=== PATIENT | female | born 1990 | race Hispanic/Latino ===

== ENCOUNTER 2023-11-01 15:30 | Emergency (ER) | payer OTHER | END 2023-11-01 18:21 | disposition left against medical advice (07) | LOC: EDH 15:30 | DX: H53.2 Diplopia (principal); Z53.21 Procedure and treatment not carried out due to patient leaving prior to being seen by health care provider ==

== ENCOUNTER 2023-11-10 16:21 | Emergency (ER) | payer OTHER ==
[~2023-11-10] VITALS: Ht 160 cm; Wt 80.7 kg
[2023-11-10] MEDS ORDERED: CYCL-309 PO (16:33)
[2023-11-10] MEDS ORDERED: BUTA-271 PO (16:33)
[2023-11-10] MEDS: ACETAMINOPHEN 500 MG TABLET PO ONE (17:06)
[2023-11-10] MEDS: CYCLOBENZAPRINE HCL 10 MG TABLET PO ONE (17:06)
[2023-11-10 17:08] VITALS: BP 105/57; PULSE 80; RESP 48; O2SAT 96
== END 2023-11-10 17:40 | disposition home or self-care (01) ==
LOC: EDH 16:21
DX: G44.209 Tension-type headache, unspecified, not intractable (principal); R20.2 Paresthesia of skin; Z98.890 Other specified postprocedural states

== ENCOUNTER 2024-01-09 17:36 | Emergency (ER) | payer OTHER ==
[~2024-01-09] VITALS: Ht 160 cm; Wt 81.2 kg
[~2024-01-09 17:36] MED LIST: BUTA-271 PO; CYCL-309 PO
[2024-01-09 19:36] VITALS: BP 123/74; PULSE 72; RESP 18
[2024-01-09 20:20] LABS: ADD UA MICROSCOPIC YES; APPEARANCE,URINE CLOUDY (CLEAR); BILIRUBIN,URINE NEGATIVE (NEGATIVE); COLOR,URINE LIGHT-YELLOW (YELLOW); GLUCOSE, URINE (UA) NEGATIVE (NEGATIVE); KETONES,URINE NEGATIVE (NEGATIVE); LEUKOCYTE ESTERASE ,URINE NEGATIVE Leu/uL (NEGATIVE); NITRATE,URINE NEGATIVE (NEGATIVE); OCCULT BLOOD,URINE NEGATIVE (NEGATIVE); PROTEIN,URINE NEGATIVE (NEGATIVE); UROBILINOGEN,URINE 0.2 mg/dL (0.2-1.0)
[2024-01-09 20:26] LABS: BACTERIA,URINE RARE /HPF (None Seen); MUCUS,URINE RARE LPF (None Seen); SQUAMOUS EPITHELIAL CELL,UR MOD /HPF (0-2); UNCLASSIFIED CRYSTAL 2 /HPF (None Seen)
[2024-01-09] MEDS ORDERED: CEFTRIAXONE 1G VIAL IM ONE (21:30)
== END 2024-01-09 22:18 | disposition left against medical advice (07) ==
LOC: EDH 17:36
DX: R10.9 Unspecified abdominal pain (principal); Z53.21 Procedure and treatment not carried out due to patient leaving prior to being seen by health care provider
CPT/HCPCS: 81001; 81025; 87088; 99281

== ENCOUNTER 2024-01-23 18:23 | Emergency (ER) | payer OTHER ==
[~2024-01-23] VITALS: Ht 160 cm; Wt 81.6 kg
[2024-01-23 18:42] LABS: BASOPHILS # (AUTO) 0.04 K/uL (0.00-0.20); BASOPHILS % (AUTO) 0.3 % (0.0-5.0); EOSINOPHILS % (AUTO) 0.7 % (0.0-8.0); HEMATOCRIT 36.3 % (36-48); IMMATURE GRANULOCYTE ABSOLUTE 0.06 K/uL (0-1); LYMPHOCYTES # (AUTO) 5.3 K/uL (1.0-4.8); LYMPHOCYTES % (AUTO) 35.9 % (21.0-51.0); MEAN CORPUSCULAR HEMOGLOBIN 27.6 pg (27.0-33.0); MEAN CORPUSCULAR HGB CONC 33.9 g/dL (32.0-36.0); MEAN CORPUSCULAR VOLUME 81.4 fL (79-99); NEUTROPHILS # (AUTO) 8.3 K/uL (1.8-7.7); NEUTROPHILS % (AUTO) 55.7 % (40.0-77.0); PLATELET COUNT (AUTO) 304 K/uL (130-400); RED BLOOD CELL COUNT(AUTO) 4.46 MIL/uL (4.00-5.50); RED CELL DISTRIBUTION WIDTH 14.1 % (11.0-15.5); WHITE BLOOD COUNT (AUTO) 14.8 K/uL (4.8-10.8)
[2024-01-23 18:54] LABS: POTASSIUM 3.4 mmol/L (3.5-5.1)
[2024-01-23 18:59] LABS: ALBUMIN 3.9 g/dL (3.5-5.0); BILIRUBIN,TOTAL 0.3 mg/dL (0.2-1.0); TOTAL PROTEIN, SERUM 8.2 g/dL (6.0-8.3)
[2024-01-23 19:43] LABS: BAND NEUTROPHILS % (MANUAL) 5 % (0-2); LYMPHOCYTES % (MANUAL) 37 % (22-44); MAN.DIFF COMMENT-IMPRESSION MANUAL DIFFERENTIAL; MONOCYTES % (MANUAL) 5 % (2-9); REACTIVE LYMPHOCYTES 10 % (0-0); SEGMENTED NEUTROPHILS % 43 % (40-70); TOTAL CELLS COUNTED 100
[2024-01-23] MEDS: KETOROLAC 30MG VIAL (30MG/ML) IVP ONE (21:11)
[2024-01-23] MEDS: 0.9%NACL 1000ML 1,000 ML IV ONE (21:11)
[2024-01-23] MEDS: ONDANSETRON 4MG INJ IVP ONE (21:12)
[2024-01-23] MEDS: ZOSYN 3.375GM+NS 50ML 50 ML IVPB STA (21:12)
[2024-01-23 21:57] LABS: APPEARANCE,URINE CLEAR (CLEAR); BILIRUBIN,URINE NEGATIVE (NEGATIVE); COLOR,URINE COLORLESS (YELLOW); GLUCOSE, URINE (UA) NEGATIVE (NEGATIVE); KETONES,URINE NEGATIVE (NEGATIVE); LEUKOCYTE ESTERASE ,URINE NEGATIVE Leu/uL (NEGATIVE); NITRATE,URINE NEGATIVE (NEGATIVE); OCCULT BLOOD,URINE LARGE (NEGATIVE); PH,URINE 6.5 (5.0-8.0); PROTEIN,URINE NEGATIVE (NEGATIVE); UROBILINOGEN,URINE 0.2 mg/dL (0.2-1.0)
[2024-01-23 21:58] LABS: ADD UA MICROSCOPIC YES
[2024-01-23 21:59] LABS: MUCUS,URINE RARE LPF (None Seen); RBC,URINE 51-100 /HPF (0-1); UNCLASSIFIED CRYSTAL 1 /HPF (None Seen)
[2024-01-23] MEDS ORDERED: IOHEXOL 350 MG/ML 100ML INFUS..BTL IV ONE (22:28)
[2024-01-24] MEDS ORDERED: FAMO20TA8 PO (00:18)
[2024-01-24 00:30] VITALS: BP 116/68; PULSE 88; RESP 16; O2SAT 99
== END 2024-01-24 00:40 | disposition home or self-care (01) ==
LOC: EDH 18:23
DX: K80.20 Calculus of gallbladder without cholecystitis without obstruction (principal); Z98.51 Tubal ligation status
CPT/HCPCS: 99285; 74177; 96365; 76705; 96375; 80053; 84703; 83690; 85025; 87040 ×2; 87088; 83605; 81001; 36415; J7030; J2405; J1885; J2543; Q9967